=== PATIENT | female | born 1945 | race Caucasian/White ===

== ENCOUNTER 2016-07-08 13:29 | Inpatient (IN) | payer MEDICARE ==
--- NOTE | 2016-07-08 14:56 | ED ---
General Adult HPI <Armando Younger - Last Filed: 07/08/16 16:48> - General Source: patient, RN notes reviewed Mode of arrival: ambulatory Limitations: no limitations <Shyla Grant - Last Filed: 07/08/16 23:09> - General Chief complaint: Extremity Problem,Nontraumatic Stated complaint: DR Matthews Time Seen by Provider: 07/08/16 14:28 - History of Present Illness Initial comments: This is a 70-year-old female who presents with right lower extremity swelling, pain and an increasing wound 2 weeks. Patient states she fell 2 weeks ago and noticed some pain to the right lower extremity that has been increasing over the last week. Patient states she was evaluated after her fall and had x-rays done of the right lower extremity which were negative for any fracture. Patient states she was put on clindamycin to prevent infection. Patient states she went to her primary care physician this morning for evaluation and was sent here to rule out DVT and to be assessed for possible admission for IV antibiotics. Patient is a known diabetic and is on Xarelto for A. fib. Patient denies any numbness/tingling or weakness but states it has been painful to walk on the right lower extremity. Patient has noticed some blistering to the right lower extremity and has a wound to the right knee that has been draining. Patient states a culture was done of this drainage from the wound by her primary care physician. Patient denies any increasing shortness of breath. Patient denies any recent fever, chills, shortness breath, chest pain, abdominal pain, nausea/vomiting/diarrhea, back pain, numbness, tingling, hematuria, headache, or visual changes, or any other complaints. (Shyla Grant) - Related Data Home Medications Medication Instructions Recorded Confirmed Acetaminophen Tab [Tylenol Tab] 500 mg PO Q6H PRN 07/08/16 07/08/16 Albuterol Sulfate [Proair Hfa] 1 - 2 puff INHALATION RT-Q6H PRN 07/08/16 Amitriptyline HCl [Elavil] 12.5 mg PO HS 07/08/16 07/08/16 Ammonium Lactate Cream [Lac-Hydrin 1 applic TOPICAL BID 07/08/16 07/08/16 12% Cream] Aspirin 81 mg PO DAILY 07/08/16 07/08/16 Atorvastatin [Lipitor] 20 mg PO DAILY 07/08/16 07/08/16 Budesonide/Formoterol Fumarate 2 puff INHALATION RT-BID 07/08/16 07/08/16 [Symbicort 160-4.5 Mcg Inhaler] Clindamycin Gel [Clindamycin 1 applic TOPICAL BID 07/08/16 07/08/16 Phosphate] Clobetasol Propionate [Temovate] 1 applic TOPICAL BID 07/08/16 07/08/16 Dulaglutide [Trulicity] 1.5 mg SQ TH 07/08/16 07/08/16 Ergocalciferol [Vitamin D2] 50,000 unit PO TU 07/08/16 07/08/16 Hydrochlorothiazide [Hydrodiuril] 25 mg PO DAILY 07/08/16 07/08/16 INSULIN LISPRO (For Pump) [humaLOG See Protocol SQ-PUMP CONTINUOUS 07/08/1610/19 (For Pump)] Losartan Potassium [Cozaar] 50 mg PO DAILY 07/08/16 07/08/16 Multivit-Min/FA/Lycopene/Lut 0.5 tab PO Q48H 07/08/16 07/08/16 [Centrum Silver Tablet] [place]-3 Fatty Acids [[place]-3] 1,000 mg PO DIRECTED 07/08/16 07/08/16 Rivaroxaban [Xarelto] 20 mg PO DAILY 07/08/16 07/08/16 metFORMIN HCL ER [Glucophage Xr] 500 mg PO DAILY 07/08/16 07/08/16 traMADol HCL [Ultram] 50 mg PO TID PRN 07/08/16 07/08/16 Allergies Allergy/AdvReac Type Severity Reaction Status Date / Time acetaminophen [From Lortab] Allergy Rash/Hives Verified 07/08/16 15:45 hydrocodone [From Lortab] Allergy Rash/Hives Verified 07/08/16 15:45 Sulfa (Sulfonamide Allergy Rash/Hives Verified 07/08/16 15:45 Antibiotics) Review of Systems ROS Other: All systems not noted in ROS Statement are negative. <Armando Younger - Last Filed: 07/08/16 16:48> ROS Other: All systems not noted in ROS Statement are negative. <Shyla Grant - Last Filed: 07/08/16 23:09> ROS Statement: Those systems with pertinent positive or pertinent negative responses have been documented in the HPI. Past Medical History Past Medical History: Asthma, Diabetes Mellitus, Hyperlipidemia, Hypertension, Osteoarthritis (OA) Additional Past Medical History / Comment(s): obesity History of Any Multi-Drug Resistant Organisms: None Reported Past Surgical History: Back Surgery, Cholecystectomy, Hysterectomy, Joint Replacement, Orthopedic Surgery Additional Past Surgical History / Comment(s): r shoulder l knee and r hip Past Psychological History: No Psychological Hx Reported Smoking Status: Former smoker Past Alcohol Use History: None Reported Past Drug Use History: None Reported - Past Family History Father Family Medical History: Congestive Heart Failure (CHF), COPD, Myocardial Infarction (MD) Additional Family Medical History / Comment(s): emphysema Mother Family Medical History: Rheumatoid Arthritis (RA) <Shyla Grant - Last Filed: 07/08/16 23:09> General Exam <Armando Younger - Last Filed: 07/08/16 16:48> Limitations: no limitations <Shyla Grant - Last Filed: 07/08/16 23:09> - General Exam Comments Initial Comments: General: The patient is awake and alert, in no distress, and does not appear acutely ill. Neck: The neck is supple, there is no tenderness or JVD. Cardiovascular: There is a regular rate and rhythm. No murmur, rub or gallop is appreciated. Respiratory: Lungs are clear to auscultation, respirations are non-labored, breath sounds are equal. No wheezes, stridor, rales, or rhonchi. Musculoskeletal: There is tenderness to palpation on the right calf, right knee and right wilson. There is a scab to the anterior aspect of the right knee with surrounding erythema and swelling. This area blanches. There is desquamation of the skin of the right lower extremity with erythema of the right calf and 2+ pitting edema. Left lower extremity is within normal limits. Strength 5/5, full range of motion and Sensation intact. Posterior tibial and dorsalis pedis pulses are 2+ bilaterally. Capillary refill is normal at less than 2 seconds. Neurological: A&O x 3. CN II-XII intact, There are no obvious motor or sensory deficits. Coordination appears grossly intact. Speech is normal. Skin: There is a scab to the anterior aspect of the right knee with surrounding erythema, swelling, warmth and tenderness. The erythema extends to the right ankle. There is a small amount of serosanguineous drainage from the scab of the right knee. There is some erythema to the right calf with desquamation of the skin and blistering. Skin is warm and dry. Psychiatric: Normal mood and affect. (Shyla Grant) Course <Armando Younger - Last Filed: 07/08/16 16:48> <Shyla Grant - Last Filed: 07/08/16 23:09> Vital Signs 07/08/16 07/08/16 07/08/16 13:37 16:45 17:56 Temperature 98.3 F 97.0 F L Pulse Rate 105 H 88 86 Respiratory 18 18 18 Rate Blood Pressure 147/87 143/63 148/67 O2 Sat by Pulse 95 97 95 Oximetry - Reevaluation(s) Reevaluation #1: 07/08/16 16:48 I did personally do a [id number] evaluation the patient is had some discomfort in her right lower extremity since a fall 2 weeks ago. She did have evaluation treatment by her family practice doctor. She's had increased pain and some redness to the right lower extremity ultrasound was done today and was negative for DVT. The exam however is consistent with cellulitis or is increased localized erythema and increased temperature the ankle proximal to the knee. Patient will be admitted for IV antibiotics. (Armando Younger) Medical Decision Making - Lab Data Result diagrams: 07/08/16 16:00 07/08/16 16:00 <Armando Younger - Last Filed: 07/08/16 16:48> - Lab Data Result diagrams: 07/08/16 16:00 07/08/16 16:00 <Shyla Grant - Last Filed: 07/08/16 23:09> - Medical Decision Making This is a 70-year-old female with right lower extremity swelling, erythema, tenderness and warmth 2 weeks after a fall. On physical exam patient is afebrile in the EC. There is tenderness to palpation on the right calf, right knee and right wilson. There is a scab to the anterior aspect of the right knee with surrounding erythema and swelling. The erythema extends to the right ankle. This area blanches. There is desquamation of the skin of the right lower extremity with erythema of the right calf and 2+ pitting edema. Left lower extremity is within normal limits. Strength 5/5, full range of motion and Sensation intact. Posterior tibial and dorsalis pedis pulses are 2+ bilaterally. Capillary refill is normal at less than 2 seconds. There is a scab to the anterior aspect of the right knee with surrounding erythema, swelling, warmth and tenderness. There is a small amount of serosanguineous drainage from the scab of the right knee. There is some erythema to the right calf with desquamation of the skin and blistering. Skin is warm and dry. A wound culture was done on 07/01/2016 and resulted in Streptococcus agalactiae and showed susceptibility to vancomycin. An ultrasound of the right lower extremity was done and reviewed showing: No evidence of acute DVT as visualized. Reported by Dr. Canela. Basic labs were drawn. Patient will be started on vancomycin. Discussed this case with attending physician Dr. Younger in regards to patient admission. I talked with Kuldip Pace TEACHING ARTIST on the phone and she agrees with patient admission and IV antibiotics. At this time patient will be admitted as an inpatient to Dr. Vee. (Shyla Grant) - Lab Data Lab Results 07/08/16 07/08/16 07/08/16 Range/Units 16:00 16:00 16:00 WBC 10.6 (3.8-10.6) k/uL RBC 4.24 (3.80-5.40) m/uL Hgb 11.5 (11.4-16.0) gm/dL Hct 35.6 (34.0-46.0) % MCV 84.0 (80.0-100.0) fL MCH 27.1 (25.0-35.0) pg MCHC 32.3 (31.0-37.0) g/dL RDW 14.0 (11.5-15.5) % Plt Count 252 (150-450) k/uL Neutrophils % 71 % Lymphocytes % 19 % Monocytes % 4 % Eosinophils % 3 % Basophils % 1 % Neutrophils # 7.5 (1.3-7.7) k/uL Lymphocytes # 2.0 (1.0-4.8) k/uL Monocytes # 0.5 (0-1.0) k/uL Eosinophils # 0.4 (0-0.7) k/uL Basophils # 0.1 (0-0.2) k/uL PT (9.0-12.0) sec INR (<1.1) APTT (22.0-30.0) sec Sodium 137 (137-145) mmol/L Potassium 4.4 (3.5-5.1) mmol/L Chloride 95 L (98-107) mmol/L Carbon Dioxide 29 (22-30) mmol/L Anion Gap 13 mmol/L BUN 14 (7-17) mg/dL Creatinine 0.55 (0.52-1.04) mg/dL Est GFR (MDRD) Af Amer >60 (>60 ml/min/1.73 sqM) Est GFR (MDRD) Non-Af >60 (>60 ml/min/1.73 sqM) Glucose 155 H (74-99) mg/dL Estimated Ave Glu mg/dL mg/dL Hemoglobin A1c (4.2-6.1) % Plasma Lactic Acid Cain 2.4 H* (0.7-2.0) mmol/L Calcium 10.4 H (8.4-10.2) mg/dL Total Bilirubin 2.2 H (0.2-1.3) mg/dL AST 28 (14-36) U/L ALT 26 (9-52) U/L Alkaline Phosphatase 119 (38-126) U/L Total Protein 7.0 (6.3-8.2) g/dL Albumin 4.2 (3.5-5.0) g/dL 07/08/16 07/08/16 Range/Units 16:00 16:00 WBC (3.8-10.6) k/uL RBC (3.80-5.40) m/uL Hgb (11.4-16.0) gm/dL Hct (34.0-46.0) % MCV (80.0-100.0) fL MCH (25.0-35.0) pg MCHC (31.0-37.0) g/dL RDW (11.5-15.5) % Plt Count (150-450) k/uL Neutrophils % % Lymphocytes % % Monocytes % % Eosinophils % % Basophils % % Neutrophils # (1.3-7.7) k/uL Lymphocytes # (1.0-4.8) k/uL Monocytes # (0-1.0) k/uL Eosinophils # (0-0.7) k/uL Basophils # (0-0.2) k/uL PT 10.6 (9.0-12.0) sec INR 1.0 (<1.1) APTT 27.0 (22.0-30.0) sec Sodium (137-145) mmol/L Potassium (3.5-5.1) mmol/L Chloride (98-107) mmol/L Carbon Dioxide (22-30) mmol/L Anion Gap mmol/L BUN (7-17) mg/dL Creatinine (0.52-1.04) mg/dL Est GFR (MDRD) Af Amer (>60 ml/min/1.73 sqM) Est GFR (MDRD) Non-Af (>60 ml/min/1.73 sqM) Glucose (74-99) mg/dL Estimated Ave Glu mg/dL 214 mg/dL Hemoglobin A1c 9.1 H (4.2-6.1) % Plasma Lactic Acid Cain (0.7-2.0) mmol/L Calcium (8.4-10.2) mg/dL Total Bilirubin (0.2-1.3) mg/dL AST (14-36) U/L ALT (9-52) U/L Alkaline Phosphatase (38-126) U/L Total Protein (6.3-8.2) g/dL Albumin (3.5-5.0) g/dL Disposition <Armando Younger - Last Filed: 07/08/16 16:48> Decision Time: 17:29 <Shyla Grant - Last Filed: 07/08/16 23:09> Clinical Impression: Cellulitis Disposition: ADMITTED IP TO THIS [facility] Condition: Good
[2016-07-08] MEDS ORDERED: IV VANCOMYCIN PER PHARMACY 1 EACH MISC MISCELLANE PRN (15:05)
[2016-07-08] MEDS ORDERED: VANCOMYCIN 1,750 MG in SODIUM CHLORIDE 0.9% 250 ML IVPB STA (15:11)
--- NOTE | 2016-07-08 15:49 | US ---
EXAMINATION TYPE: US venous doppler duplex LE RT DATE OF EXAM: 07/08/2016 3:32 PM COMPARISON: NONE CLINICAL HISTORY: Pain. Patient had a fall 2 weeks ago, pain right leg, right knee replacement 2002, patient on Xarelto, AFIB SIDE PERFORMED: Right VESSELS IMAGED: External Iliac Vein (EIV) Common Femoral Vein Deep Femoral Vein Greater Saphenous Vein * Femoral Vein Popliteal Vein Small Saphenous Vein * Proximal Calf Veins (* superficial vessels) No intraluminal filling defect. Normal compressibility and augmentation of flow. Right Leg: No evidence of acute DVT as visualized IMPRESSION: No evidence for DVT at this time.
[2016-07-08] MEDS ORDERED: SODIUM CHLORIDE 0.9% 500 ML IV ONE (16:28)
[2016-07-08 16:29] LABS: Basophils # (A) 0.1 k/uL (0-0.2); Basophils % (A) 1 %; CH 27.8; CHCM 33.2; Eosinophils # (A) 0.4 k/uL (0-0.7); Eosinophils % (A) 3 %; HCT 35.6 % (34.0-46.0); HDW 3.02; HGB 11.5 gm/dL (11.4-16.0); Luc # (Auto) 0.18; Luc % (Auto) 2; Lymphocytes % (A) 19 %; MCH 27.1 pg (25.0-35.0); MCHC 32.3 g/dL (31.0-37.0); Monocytes # (A) 0.5 k/uL (0-1.0); Monocytes % (A) 4 %; Neutrophils # (A) 7.5 k/uL (1.3-7.7); Neutrophils % (A) 71 %; RBC 4.24 m/uL (3.80-5.40); WBC 10.6 k/uL (3.8-10.6)
[2016-07-08 16:33] LABS: ALT 26 U/L (9-52); AST 28 U/L (14-36); Alkaline Phosphatase 119 U/L (38-126); Anion Gap 13 mmol/L; Blood Urea Nitrogen 14 mg/dL (7-17); Calcium 10.4 mg/dL (8.4-10.2); Carbon Dioxide 29 mmol/L (22-30); Chloride 95 mmol/L (98-107); Glucose 155 mg/dL (74-99); Non-African American GFR(MDRD) >60 (>60 ml/min/1.73 sqM); Potassium 4.4 mmol/L (3.5-5.1); Sodium 137 mmol/L (137-145); Total Bilirubin 2.2 mg/dL (0.2-1.3)
[2016-07-08 16:40] LABS: Prothrombin Time 10.6 sec (9.0-12.0)
[2016-07-08] MEDS ORDERED: NALOXONE 0.4 MG/ML 1 ML VIAL IV PRN (17:00)
[2016-07-08] MEDS ORDERED: NON-FORMULARY DRUG (Omega-3 Fatty Acids [Omega-3] 1,000 MG) PO SCH (17:15)
[2016-07-08] MEDS ORDERED: IPRATROPIUM-ALBUTEROL 3 ML NEB INHALATION PRN (17:16)
[2016-07-08] MEDS ORDERED: INSULIN LISPRO (humaLOG) 300 UNIT/3 ML VIAL SQ ONE (17:17)
[2016-07-08] MEDS: SYMBICORT 160-4.5 MCG INHALER INHALATION SCH (19:10)
[2016-07-08 19:13] LABS: Hemoglobin A1C 9.1 % (4.2-6.1)
[2016-07-08] MEDS: INSULIN LISPRO (humaLOG) 300 UNIT/3 ML VIAL SQ SCH ×2 (19:51→20:48)
[2016-07-08] MEDS: IBUPROFEN 400 MG TAB PO PRN (19:56)
[2016-07-08] MEDS: RIVAROXABAN 10 MG TAB PO SCH (19:57)
[2016-07-08] MEDS: AMITRIPTYLINE HCL 25 MG TAB PO SCH (19:57)
[2016-07-08] MEDS: CLOBETASOL PROP 0.05% CR 15GM TOPICAL SCH (19:58)
[2016-07-08] MEDS: SODIUM CHLORIDE 0.9% 1,000 ML IV SCH (20:03)
[2016-07-08 20:42] LABS: Glucose,Whole Blood 97 mg/dL (75-99)
[2016-07-08] MEDS: AMMONIUM LACTATE 12% CREAM 140 GM TUBE TOPICAL SCH (20:48)
[2016-07-08] MEDS ORDERED: NON-FORMULARY DRUG (Clindamycin Gel 1 APPLIC) TOPICAL SCH (21:00)
[2016-07-09] MEDS: IBUPROFEN 400 MG TAB PO PRN ×4 (03:09→23:39)
[2016-07-09] MEDS: VANCOMYCIN 1,750 MG in SODIUM CHLORIDE 0.9% 250 ML IVPB SCH ×2 (05:31→17:26)
[2016-07-09 05:50] LABS: Basophils # (A) 0.1 k/uL (0-0.2); Basophils % (A) 1 %; CH 27.4; CHCM 32.5; Eosinophils # (A) 0.4 k/uL (0-0.7); Eosinophils % (A) 5 %; HCT 32.5 % (34.0-46.0); HDW 3.03; HGB 10.4 gm/dL (11.4-16.0); Hypochromasia Slight; Luc # (Auto) 0.16; Luc % (Auto) 2; Lymphocytes % (A) 26 %; MCH 27.2 pg (25.0-35.0); MCHC 32.1 g/dL (31.0-37.0); MCV 84.8 fL (80.0-100.0); Mean Platelet Volume 7.7; Monocytes # (A) 0.4 k/uL (0-1.0); Monocytes % (A) 5 %; Neutrophils # (A) 4.8 k/uL (1.3-7.7); Neutrophils % (A) 61 %; RBC 3.83 m/uL (3.80-5.40); RDW 14.2 % (11.5-15.5); WBC 7.9 k/uL (3.8-10.6); WBC (Perox) 8.32
[2016-07-09 06:09] LABS: ALT 30 U/L (9-52); AST 23 U/L (14-36); Alkaline Phosphatase 104 U/L (38-126); Anion Gap 10 mmol/L; Blood Urea Nitrogen 15 mg/dL (7-17); Calcium 9.8 mg/dL (8.4-10.2); Carbon Dioxide 28 mmol/L (22-30); Chloride 99 mmol/L (98-107); Glucose 143 mg/dL (74-99); Non-African American GFR(MDRD) >60 (>60 ml/min/1.73 sqM); Potassium 4.2 mmol/L (3.5-5.1); Sodium 137 mmol/L (137-145); Total Bilirubin 1.9 mg/dL (0.2-1.3)
[2016-07-09] MEDS: SYMBICORT 160-4.5 MCG INHALER INHALATION SCH ×2 (07:28→19:31)
[2016-07-09 07:43] LABS: Glucose,Whole Blood 162 mg/dL (75-99)
[2016-07-09] MEDS: INSULIN LISPRO (humaLOG) 300 UNIT/3 ML VIAL SQ SCH ×4 (08:17→21:27)
[2016-07-09] MEDS: metFORMIN 500 MG TAB PO SCH ×2 (08:18→17:28)
[2016-07-09] MEDS: ATORVASTATIN 20 MG TAB PO SCH (08:18)
[2016-07-09] MEDS: ASPIRIN 81 MG CHEW PO SCH (08:19)
[2016-07-09] MEDS: LOSARTAN 50 MG TAB PO SCH (08:19)
[2016-07-09] MEDS: AMMONIUM LACTATE 12% CREAM 140 GM TUBE TOPICAL SCH ×2 (08:20→21:26)
[2016-07-09] MEDS: CLOBETASOL PROP 0.05% CR 15GM TOPICAL SCH ×2 (08:20→21:26)
[2016-07-09] MEDS ORDERED: HYDROCHLOROTHIAZIDE 25 MG TAB PO SCH (09:00)
[2016-07-09 11:47] LABS: Glucose,Whole Blood 187 mg/dL (75-99)
[2016-07-09] MEDS ORDERED: ERGOCALCIFEROL 50,000 UNIT CAP PO SCH (12:00)
[2016-07-09 12:10] VITALS: BMI 47.2
[2016-07-09] MEDS: MULTIVITAMINS, THERA LIQUID 237 ML BOTTLE PO SCH (12:35)
--- NOTE | 2016-07-09 13:10 | HP ---
DATE OF ADMISSION: Patient is a 70-year-old admitted with left lower extremity swelling, pain and redness with localized of temperature. Patient's leg appear to be cellulitic extending up to the midthigh area. Patient has skin breakdowns in the left knee where she had a left knee surgery, and symptoms started with a bullous lesion. I did not did not see any right inguinal lymphadenopathy. Patient underwent Doppler of the right lower extremity, which did not show any DVT. Patient is on Xarelto for atrial fibrillation and patient apparently had a DVT as well in the past. Patient was started on vancomycin and I am consulting because of the severity of redness and severity of her symptoms, I will go consult Infectious Disease. Patient was given outpatient clindamycin, she failed therapy with clindamycin. Patient denied any fever, chills. Patient is complaining of severe pain and burning sensation in the right lower extremity. REVIEW OF SYSTEMS: CONSTITUTIONAL: No fever, no malaise, no fatigue. HEENT: No recent visual problems or hearing problems. Denied any sore throat. CARDIOVASCULAR: No chest pain, orthopnea, PND, no palpitations, no syncope. PULMONARY: No shortness of breath, no cough, no hemoptysis. GASTROINTESTINAL: No diarrhea, no nausea, no vomiting, no abdominal pain. Normoactive bowel sounds. NEUROLOGICAL: No headaches, no weakness, no numbness. HEMATOLOGICAL: Denies any bleeding or petechiae. GENITOURINARY: Denies any burning micturition, frequency, or urgency. MUSCULOSKELETAL/RHEUMATOLOGICAL: Denies any joint pain, swelling, or any muscle pain. ENDOCRINE: Denies any polyuria or polydipsia. EXTREMITIES: Right lower extremity as mentioned above. The rest of the 14 point review of systems is negative. Home medications include: 1. Acetaminophen. 2. Albuterol. 3. Amitriptyline. 4. Ammonium lactate aspirin. 5. Atorvastatin. 6. Budesonide/formoterol. 7. Clindamycin. 8. Clobetasol. 9. Trulicity. 10. Ergocalciferol. 11. Hydrochlorothiazide. 12. Insulin lispro. Patient uses pump in spite of which he has had ( ) that is 9.1. So she does not use the pump, but will try her pump and see what is wrong with the pump and depending on that, will decide on what regimen to use of the two, use the pump or for just put her on Lantus and premeal insulin. 13. Losartan. 14. Multivitamin. 15. [place]-3 fatty acids. 16. Rivaroxaban. 17. Metformin. 18. Tramadol. ALLERGIES: Allergic to ACETAMINOPHEN, HYDROCODONE and SULFA DRUGS. PAST MEDICAL HISTORY: Significant for asthma, diabetes mellitus, hyperlipidemia, hypertension, osteoarthritis, back surgery, cholecystectomy, hysterectomy, joint replacement surgery and orthopedic surgery, shoulder replacement surgery. Former smoker. Quit smoking years ago. Denied any alcohol abuse or drug abuse. FAMILY HISTORY: Significant for congestive heart failure, COPD, myocardial infarction in the past, rheumatoid arthritis. PHYSICAL EXAMINATION: Temperature 97.0, pulse of 80, respiratory rate of 21, blood pressure is 150/81, saturating at 94% on room air. GENERAL: The patient is alert and oriented x3, not in any acute distress. Well developed, well nourished. HEENT: Pupils are round and equally reacting to light. EOMI. No scleral icterus. No conjunctival pallor. Normocephalic, atraumatic. No pharyngeal erythema. No thyromegaly. CARDIOVASCULAR: S1 and S2 present. No murmurs, rubs, or gallops. PULMONARY: Chest is clear to auscultation, no wheezing or crackles. ABDOMEN: Soft, nontender, nondistended, normoactive bowel sounds. No palpable organomegaly. MUSCULOSKELETAL: No joint swelling or deformity. NEUROLOGICAL: Gross neurological examination did not reveal any focal deficits. EXTREMITIES: Right lower extremity and dermatologic as mentioned in the HPI. Patient was tachycardic at one point of time in ER. LABORATORY DATA: CBC, CMP within normal limits. Hemoglobin A1c as mentioned above. Patient has elevated bilirubin which is a nonspecific elevation, nothing needs to be done for that. ASSESSMENT AND PLAN: 1. Right lower extremity cellulitis. Patient had a recent surgery. Negative Doppler for DVT. Patient will be continued on vancomycin, blood cultures were obtained. 2. Diabetes mellitus type 2, management as mentioned above. 3. Hypertension. 4. Hyperlipidemia. 5. Osteoarthritis. 6. Obesity. For above mentioned chronic medical problems, I will go ahead and continue the home medications and patient's primary care physician is Dr. Marshall Sy.
[2016-07-09 17:11] LABS: Glucose,Whole Blood 180 mg/dL (75-99)
[2016-07-09] MEDS: RIVAROXABAN 10 MG TAB PO SCH (17:27)
[2016-07-09] MEDS: SODIUM CHLORIDE 0.9% 1,000 ML IV SCH (17:39)
[2016-07-09 20:24] LABS: Glucose,Whole Blood 206 mg/dL (75-99)
[2016-07-09] MEDS: AMITRIPTYLINE HCL 25 MG TAB PO SCH (21:25)
[2016-07-09] MEDS: FAMOTIDINE 20 MG TAB PO SCH (21:26)
[2016-07-10] MEDS ORDERED: VANCOMYCIN TROUGH DUE 1 EACH MISC MISCELLANE ONE (05:00)
[2016-07-10] MEDS: IBUPROFEN 400 MG TAB PO PRN ×3 (05:20→18:45)
[2016-07-10 05:44] LABS: CH 27.2; CHCM 32.1; HCT 32.3 % (34.0-46.0); HDW 3.06; HGB 10.4 gm/dL (11.4-16.0); Hypochromasia Slight; MCH 27.5 pg (25.0-35.0); MCHC 32.3 g/dL (31.0-37.0); MCV 85.1 fL (80.0-100.0); Mean Platelet Volume 7.8; RBC 3.79 m/uL (3.80-5.40); RDW 14.1 % (11.5-15.5); WBC 7.9 k/uL (3.8-10.6)
[2016-07-10 06:05] LABS: Anion Gap 10 mmol/L; Blood Urea Nitrogen 15 mg/dL (7-17); Calcium 9.6 mg/dL (8.4-10.2); Carbon Dioxide 27 mmol/L (22-30); Chloride 101 mmol/L (98-107); Glucose 221 mg/dL (74-99); Non-African American GFR(MDRD) >60 (>60 ml/min/1.73 sqM); Potassium 4.4 mmol/L (3.5-5.1); Sodium 138 mmol/L (137-145)
[2016-07-10] MEDS: VANCOMYCIN 1,750 MG in SODIUM CHLORIDE 0.9% 250 ML IVPB SCH ×2 (06:21→17:09)
[2016-07-10 06:57] LABS: Glucose,Whole Blood 212 mg/dL (75-99)
[2016-07-10] MEDS: ASPIRIN 81 MG CHEW PO SCH (07:29)
[2016-07-10] MEDS: AMMONIUM LACTATE 12% CREAM 140 GM TUBE TOPICAL SCH ×2 (07:29→20:38)
[2016-07-10] MEDS: metFORMIN 500 MG TAB PO SCH ×2 (07:29→17:09)
[2016-07-10] MEDS: ATORVASTATIN 20 MG TAB PO SCH (07:29)
[2016-07-10] MEDS: FAMOTIDINE 20 MG TAB PO SCH ×2 (07:30→20:35)
[2016-07-10] MEDS: CLOBETASOL PROP 0.05% CR 15GM TOPICAL SCH ×2 (07:30→23:08)
[2016-07-10] MEDS: LOSARTAN 50 MG TAB PO SCH (07:30)
[2016-07-10] MEDS: INSULIN LISPRO (humaLOG) 300 UNIT/3 ML VIAL SQ SCH ×4 (07:30→22:17)
[2016-07-10] MEDS: SYMBICORT 160-4.5 MCG INHALER INHALATION SCH ×2 (09:04→21:05)
[2016-07-10 11:46] LABS: Glucose,Whole Blood 179 mg/dL (75-99)
[2016-07-10 16:52] LABS: Glucose,Whole Blood 199 mg/dL (75-99)
[2016-07-10] MEDS: RIVAROXABAN 10 MG TAB PO SCH (17:09)
[2016-07-10] MEDS: SODIUM CHLORIDE 0.9% 1,000 ML IV SCH (17:09)
[2016-07-10] MEDS: AMITRIPTYLINE HCL 25 MG TAB PO SCH (20:35)
[2016-07-10 21:01] LABS: Glucose,Whole Blood 193 mg/dL (75-99)
[2016-07-10] MEDS: traMADol 50 MG TAB PO PRN (22:16)
[2016-07-11] MEDS: VANCOMYCIN 1,750 MG in SODIUM CHLORIDE 0.9% 250 ML IVPB SCH (05:19)
[2016-07-11 07:00] LABS: Glucose,Whole Blood 209 mg/dL (75-99)
[2016-07-11] MEDS: metFORMIN 500 MG TAB PO SCH ×2 (08:11→17:47)
[2016-07-11] MEDS: FAMOTIDINE 20 MG TAB PO SCH (08:11)
[2016-07-11] MEDS: ATORVASTATIN 20 MG TAB PO SCH (08:11)
[2016-07-11] MEDS: ASPIRIN 81 MG CHEW PO SCH (08:12)
[2016-07-11] MEDS: INSULIN LISPRO (humaLOG) 300 UNIT/3 ML VIAL SQ SCH ×4 (08:13→21:39)
[2016-07-11] MEDS: LOSARTAN 50 MG TAB PO SCH (08:13)
[2016-07-11] MEDS: CLOBETASOL PROP 0.05% CR 15GM TOPICAL SCH ×2 (08:14→21:38)
[2016-07-11] MEDS: AMMONIUM LACTATE 12% CREAM 140 GM TUBE TOPICAL SCH ×2 (08:14→21:40)
[2016-07-11 08:22] LABS: Anion Gap 12 mmol/L; Calcium 9.1 mg/dL (8.4-10.2); Carbon Dioxide 26 mmol/L (22-30); Chloride 101 mmol/L (98-107); Glucose 195 mg/dL (74-99); Non-African American GFR(MDRD) >60 (>60 ml/min/1.73 sqM); Potassium 4.2 mmol/L (3.5-5.1); Sodium 139 mmol/L (137-145)
[2016-07-11 08:37] LABS: Blood Urea Nitrogen 13 mg/dL (7-17)
[2016-07-11] MEDS: SYMBICORT 160-4.5 MCG INHALER INHALATION SCH ×2 (08:44→21:18)
[2016-07-11] MEDS: traMADol 50 MG TAB PO PRN (10:47)
--- NOTE | 2016-07-11 11:56 | P.PN ---
Subjective Date of service 07/10/2016 Progress note being dictated for Dr. Vee. Interval history: This is a 70-year-old female admitted with right lower extremity cellulitis, significant scabbed knee, status post fall with failure of outpatient treatment and multiple other medical issues. Doppler negative for DVT. Patient has insulin pump, pump issues, hemoglobin A1c on admission 9.1. natural resources extension educator consult in place with further recommendations pending. Accu-Cheks ranging from 170s to low 200s. Maintained on vancomycin with slow improvement. Decreased pain . Diet intake with no nausea or vomiting. Positive bowel movement last night . Infectious disease consulted further recommendations. Denies chest pain, palpitations or increasing shortness of breath. Afebrile, normal WBC. Pulmonary blood culture negative. Objective - Vital Signs Vital signs: Vital Signs Temp 98.1 F 07/10/16 15:00 Pulse 88 07/10/16 15:00 Resp 20 07/10/16 15:00 BP 140/76 07/10/16 15:00 Pulse Ox 97 07/10/16 15:00 Intake & Output 07/09/16 07/10/16 07/10/16 18:59 06:59 18:59 Intake Total 1520 Balance 1520 Weight 113.398 kg Intake: Oral 1520 Other: Voiding Method Bedside Commode Bedside Commode # Voids 3 3 3 - Exam PHYSICAL EXAM: VITAL SIGNS: [As above] GENERAL: [Sitting up at side of bed, no acute distress] HEENT: [Pupils equal conjunctiva normal.] NECK: [Supple, no JVD] RESPIRATORY EFFORT:[Normal] LUNGS: [Essentially clear, bilateral bases diminished, no rales rhonchi or wheezing] CARDIOVASCULAR[irregular, no murmurs rubs or gallops] GI: [Abdomen soft, nontender, positive bowel sounds.] PSYCH: [Alert and oriented -3, mood and affect normal.] SKIN:Improved erythema, edema of right lower extremity. Scab dry without drainage. NEURO: No focal deficits, moves all 4 extremities, strength and sensation intact - Labs CBC & Chem 7: 07/10/16 05:18 07/11/16 07:42 Labs: Abnormal Lab Results - Last 24 Hours (Table) 07/09/16 07/10/16 07/10/16 Range/Units 20:14 05:18 05:18 RBC 3.79 L (3.80-5.40) m/uL Hgb 10.4 L (11.4-16.0) gm/dL Hct 32.3 L (34.0-46.0) % Glucose 221 H (74-99) mg/dL POC Glucose (mg/dL) 206 H (75-99) mg/dL 07/10/16 07/10/16 07/10/16 Range/Units 06:56 11:45 16:50 RBC (3.80-5.40) m/uL Hgb (11.4-16.0) gm/dL Hct (34.0-46.0) % Glucose (74-99) mg/dL POC Glucose (mg/dL) 212 H 179 H 199 H (75-99) mg/dL Assessment and Plan Plan: 1. Right lower extremity cellulitis with wound scabbed over, status post fall with failure of outpatient treatment. 2. [Diabetes mellitus type 2, with insulin pump difficulties, hemoglobin A1c 9.1 ]. 3. [Essential hypertension]. 4. [Hyperlipidemia]. 5. [Osteoarthritis]. 6. [Obesity, BMI 47.2]. 7. Gait dysfunction, uses walker 8. Former history of nicotine abuse 9. Chronic intermittent asthma Plan: Continue on current medication regime, antibiotics, monitoring and symptomatic treatment. Close monitoring of Accu-Cheks with informatics educator consult in place regarding insulin pump difficulties. Slow improvement of extremity with infectious disease consulted. Close monitoring of cultures. Further recommendations to follow. The impression and plan of care has been dictated as directed. : I performed a H&P examination of this patient and discussed the same with the dictator. I agree with the dictator's note. Any additional findings/opinions/ etc. will be noted.
[2016-07-11 12:01] LABS: Glucose,Whole Blood 219 mg/dL (75-99)
[2016-07-11] MEDS ORDERED: FUROSEMIDE 10 MG/ML 4 ML VIAL IV STA (12:16)
[2016-07-11] MEDS: MULTIVITAMINS, THERA LIQUID 237 ML BOTTLE PO SCH (12:58)
--- NOTE | 2016-07-11 16:33 | PN ---
The patient is a 70 -year-old female admitted with a right lower extremity cellulitis and patient still has quite a bit of cellulitis in that area and patient is awaiting and recommendations from infectious disease. I will give her a dose of Lasix because of her increased edema. Patient is asked to elevate her leg. Her kidney function is within normal limits. REVIEW OF SYSTEMS: CARDIOVASCULAR: No chest pain, no orthopnea, no PND, no palpitations. PULMONARY: Denied any shortness of breath. No cough or hemoptysis. GASTROINTESTINAL: No diarrhea, nausea or vomiting. No abdominal pain. Normoactive bowel sounds. NEUROLOGIC: No headaches, no weakness, no numbness. Dermatologic as described in HPI. Medications were reviewed. Medication changes as mentioned in the interval history. PHYSICAL EXAMINATION: Temperature 97.5, Pulse of 87, respiratory rate 20, blood pressure 145/77, saturating at 95% on room air. GENERAL: The patient is alert and oriented x3, not in any acute distress. Well developed, well nourished. HEENT: Pupils are round and equally reacting to light. EOMI. No scleral icterus. No conjunctival pallor. Normocephalic, atraumatic. No pharyngeal erythema. No thyromegaly. CARDIOVASCULAR: S1 and S2 present. No murmurs, rubs, or gallops. PULMONARY: Chest is clear to auscultation, no wheezing or crackles. ABDOMEN: Soft, nontender, nondistended, normoactive bowel sounds. No palpable organomegaly. MUSCULOSKELETAL: No joint swelling or deformity. EXTREMITIES: Edema is worse. Her redness improved a little bit. Patient's wounds remain the same and ruptured bolus lesions remain the same. NEUROLOGICAL: Gross neurological examination did not reveal any focal deficits. SKIN: No rashes. LABORATORY DATA: Basic metabolic profile is essentially within normal limits. ASSESSMENT AND PLAN: 1. Right lower extremity cellulitis. Continue with vancomycin. Patient has right knee surgery. 2. Type 2 diabetes mellitus. 3. Hypertension. 4. Hyperlipidemia. 5. Obesity. 6. Nicotine abuse. 7. Chronic intermittent asthma moderate without any exacerbation. Plan is to continue with present antibiotics, IV fluids will be discontinued and patient will be given a dose of Lasix. Patient's insulin pump will be placed ( ) we will put her insulin pump back on and see how her blood sugars are. Diabetic education will evaluate the Insulin pump. Awaiting the infectious disease recommendations. Possibility of discharge tomorrow.
[2016-07-11 16:44] LABS: Glucose,Whole Blood 231 mg/dL (75-99)
[2016-07-11] MEDS: ceFAZolin 2 GM in SODIUM CHLORIDE 0.9% 100 ML IVPB SCH ×2 (16:52→23:45)
[2016-07-11] MEDS ORDERED: NON-FORMULARY DRUG (Dulaglutide [Trulicity] 1.5 MG) SQ SCH (17:04)
[2016-07-11] MEDS: RIVAROXABAN 10 MG TAB PO SCH (17:47)
[2016-07-11] MEDS: SODIUM CHLORIDE 0.9% 1,000 ML IV SCH (17:49)
[2016-07-11 21:32] LABS: Glucose,Whole Blood 167 mg/dL (75-99)
[2016-07-11] MEDS: AMITRIPTYLINE HCL 25 MG TAB PO SCH (21:39)
--- NOTE | 2016-07-11 22:49 | CONS ---
DATE OF CONSULTATION: 07/11/2016 REASON FOR CONSULTATION: Right lower lobe cellulitis. HISTORY OF PRESENT ILLNESS: The patient is a 60-year-old female presenting to the ER with chief complaints of increasing swelling and redness of her right lower extremity. The patient apparently did have a fall about 2 weeks ago and the patient fell on her right knee area, and that has led to some bruising and laceration all clustered up, subsequently the patient noticed to have the right leg becoming more swollen and red and the patient apparently has been treated with Clindamycin and no significant improvement. Subsequently patient has been sent to the ER to be evaluated for possible DVT. The patient did have a lower extremity Doppler that was negative for DVT. The patient has been admitted to the hospital. She was started on vancomycin. I was asked to see the patient last night for further recommendations antibiotics. The patient has no fever during this admission and she did have normal white count on her admission as well. Blood culture has been negative, wound culture so far negative. Patient did mention that the right leg swelling and redness slight more with some blister formation which has not popped up. REVIEW OF SYSTEMS: CONSTITUTIONAL: Positive for weakness but denies any fever. EYES: No complaint. ENT: No complaint. RESPIRATORY: As per HPI. CARDIOVASCULAR: No complaint. GENITOURINARY: No complaint. GASTROINTESTINAL: No complaint. MUSCULOSKELETAL: As per HPI. INTEGUMENTARY: As per HPI. PSYCHOLOGIC: No complaint. ENDOCRINE: No complaint. NEUROLOGIC: No complaint. Past medical history significant for diabetes mellitus, hypertension, hyperlipidemia, osteoarthritis, asthma, morbid obesity. PAST SURGICAL HISTORY: Cholecystectomy, hysterectomy, right knee replacement in 2002 and back surgery. SOCIAL HISTORY: Remote history of smoking. No drinking or any drug use. FAMILY HISTORY: History of congestive heart failure, COPD and myocardial infarction as well as emphysema. Mother with history of rheumatoid arthritis. ALLERGIES: TYLENOL, HYDROCODONE AND SULFA ANTIBIOTIC. Medications currently include the patient is on: 1. DuoNeb. 2. Elavil. 3. Aspirin. 4. Lipitor. 5. Vancomycin, pharmacy to dose. 6. Vitamin D2. 7. Lasix. 8. Humalog. 9. Theragran. 10. Ammonia lactate. 11. Cozaar. 12. Glucophage. 13. Narcan. 14. Xarelto. 15. Tramadol. On examination, blood pressure 126/60 with a pulse of 86, temperature 98.6. She is 94% on room air. General description is an elderly female, up in the chair in no distress. No tachypnea or accessory muscle of respiration use. HEENT examination shows pallor. There is no scleral icterus. Oral mucosa membranes dry. NECK: Trachea central. There is no thyromegaly. LUNGS: Unlabored breathing. Clear to auscultation anteriorly. HEART: S1, S2 irregular rate and rhythm. ABDOMEN: Soft, no tenderness. No guarding or rigidity. EXTREMITIES: Right leg is slightly more swollen but did have minimal redness, slightly warm to touch. She did have a bruise and a dried up scar on the right knee area. NEUROLOGICAL: Patient is awake, alert, oriented x3. Mood and affect normal. LABS: Hemoglobin is 10.7, white count 7.9. BUN of 13, creatinine 0.59. Blood culture has been currently pending. Lower extremity Doppler was negative for DVT. DIAGNOSTIC IMPRESSION AND PLAN: Patient with diffuse swelling and redness of the right lower extremity. The patient did have a recent fall and did have a bruise to the right knee area current with a bruise to the knee but no definite cellulitis of the area was noticed. with swelling and redness of the leg. No evidence of any athlete's foot. No skin break down or any drainage, more likely streptococcal cellulitis, clinical suspicious low for Methicillin-resistant Staph aureus infection. PLAN: 1. Will discontinue the vancomycin. 2. Start the patient on Cefazolin 2 grams q.8 hour. 3. dry dressing to the knee area to keep it dry. 4. Will follow up on the clinical condition and cultures to further adjust the medication if needed. Thank you for this consultation. Will follow this patient along with you. IVANA
[2016-07-12 07:11] LABS: Glucose,Whole Blood 200 mg/dL (75-99)
[2016-07-12] MEDS: SYMBICORT 160-4.5 MCG INHALER INHALATION SCH (07:27)
[2016-07-12 07:35] VITALS: RESP 18
[2016-07-12] MEDS: metFORMIN 500 MG TAB PO SCH (07:57)
[2016-07-12] MEDS: INSULIN LISPRO (humaLOG) 300 UNIT/3 ML VIAL SQ SCH ×2 (07:57→12:40)
[2016-07-12] MEDS: ceFAZolin 2 GM in SODIUM CHLORIDE 0.9% 100 ML IVPB SCH (07:57)
[2016-07-12] MEDS: ATORVASTATIN 20 MG TAB PO SCH (07:58)
[2016-07-12] MEDS: ASPIRIN 81 MG CHEW PO SCH (07:58)
[2016-07-12] MEDS: AMMONIUM LACTATE 12% CREAM 140 GM TUBE TOPICAL SCH (07:58)
[2016-07-12] MEDS: CLOBETASOL PROP 0.05% CR 15GM TOPICAL SCH (07:58)
[2016-07-12] MEDS: LOSARTAN 50 MG TAB PO SCH (07:59)
[2016-07-12] MEDS: traMADol 50 MG TAB PO PRN (08:42)
[2016-07-12] MEDS ORDERED: FUROSEMIDE 10 MG/ML 4 ML VIAL IV SCH (09:00)
[2016-07-12 09:54] LABS: CH 27.1; CHCM 31.9; HCT 35.4 % (34.0-46.0); HGB 11.1 gm/dL (11.4-16.0); Hypochromasia Slight; MCH 26.8 pg (25.0-35.0); MCHC 31.3 g/dL (31.0-37.0); MCV 85.5 fL (80.0-100.0); Mean Platelet Volume 7.6; RBC 4.14 m/uL (3.80-5.40); RDW 14.1 % (11.5-15.5); WBC 10.5 k/uL (3.8-10.6)
[2016-07-12 10:10] LABS: Anion Gap 15 mmol/L; Blood Urea Nitrogen 12 mg/dL (7-17); Calcium 9.1 mg/dL (8.4-10.2); Carbon Dioxide 24 mmol/L (22-30); Chloride 99 mmol/L (98-107); Glucose 266 mg/dL (74-99); Non-African American GFR(MDRD) >60 (>60 ml/min/1.73 sqM); Sodium 138 mmol/L (137-145)
[2016-07-12 11:46] LABS: Glucose,Whole Blood 251 mg/dL (75-99)
[2016-07-12 14:50] VITALS: BP 153/73; PULSE 81; TEMP 97.9
--- NOTE | 2016-07-12 17:44 | PN ---
DATE OF SERVICE: 07/12/2016 REASON FOR FOLLOWUP: Right lower extremity cellulitis. INTERVAL HISTORY: The patient is afebrile. She is currently breathing comfortably. The patient denies significant chest pain or shortness of breath or cough. The right leg swelling has improved. No skin breakdown. No drainage. On examination, blood pressure is 136/70 with a pulse of 87, temperature 97. She is 93% on room air. General description is an elderly female up in the chair in no distress. RESPIRATORY SYSTEM: Unlabored breathing. Clear to auscultation anteriorly. HEART: S1, S2. Regular rate and rhythm. ABDOMEN: Soft. No tenderness. RIGHT LEG: Overall swelling and redness have improved. The knee is about the same, with no worsening. DIAGNOSTIC IMPRESSION AND PLAN: Patient with right lower extremity cellulitis. Overall improvement on the cefazolin. Plan to finish therapy with p.o. Keflex 500 mg q.8 hours for another 10 days. Prescription has been sent for the pharmacy. She will continue with an Drake wrap to keep the swelling down. Outpatient followup in the office in about a week. Continue supportive care. IVANA
--- NOTE | 2016-07-13 08:04 | DS ---
DATE OF ADMISSION: 07/08/2016 DATE OF DISCHARGE: 07/12/2016 FINAL DIAGNOSES: 1. Right lower extremity cellulitis 2. Diabetes mellitus type 2. 3. Hypertension. 4. Hyperlipidemia. 5. Obesity. 6. History of nicotine dependence. 7. History of chronic intermittent asthma, moderate without any exacerbation. DISCHARGE DISPOSITION: The patient will be discharged in stable condition with guarded prognosis. HISTORY OF PRESENT ILLNESS: This 70-year-old woman with a past medical history of multiple medical problems was admitted with right lower extremity cellulitis and other medical issues. The patient being treated with IV antibiotics. The patient improved significantly. Infectious disease saw the patient and local treatment was advised. The patient will be discharged in a stable condition with guarded prognosis. DISCHARGE ADVICE AND MEDICATIONS: 1. Diet is cardiac. 2. Activity limited until follow 3. Follow-up with Dr. Sy in 2 to 3 days. 4. Follow up with Dr. Hernandez in one week. Infectious disease. 5. Otherwise, medications are Tylenol 500 mg q.6 p.r.n. 6. Pro-Air 1 to 2 puffs q.i.d. p.r.n. 7. Elavil 12.5 mg q.h.s. 8. Lac-Hydrin topically daily. 9. Aspirin 81 mg daily. 10. Lipitor 20 mg daily. 11. Symbicort 2 puffs b.i.d. 12. Keflex 500 mg q.8 for 10 days. 13. Clindamycin application topically. 14. clobetasol one application topically. 15. Trulicity 1.5 mg subcutaneously . 16. Vitamin D2 50,000 p.o. Friday. 17. HydroDIURIL 25 mg p.o. daily. 18. Insulin pump as before. 19. Cozaar 50 mg p.o. daily. 20. Multivitamins 0.5 p.o. q.48 hours. 21. Cicero-3 1000 milligrams as before. 22. Xarelto 20 mg p.o. daily. 23. glucophage 500 mg p.o. daily. 24. Ultram 50 mg p.o. t.i.d. p.r.n. Once again, the patient will be discharged in stable condition with guarded prognosis. MTDD
== END 2016-07-12 16:37 | disposition home health service (06) | DRG 603 ==
LOC: EC 13:29 → 4MS4W 16:49
PROVIDERS: ADMIT Internal Medicine; ATTEND Internal Medicine
DX: L03.115 Cellulitis of right lower limb (principal); I48.91 Unspecified atrial fibrillation; I10 Essential (primary) hypertension; E11.9 Type 2 diabetes mellitus without complications; E66.9 Obesity, unspecified; E78.5 Hyperlipidemia, unspecified; J45.20 Mild intermittent asthma, uncomplicated; M19.90 Unspecified osteoarthritis, unspecified site; Z68.42 Body mass index [BMI] 45.0-49.9, adult; Z79.01 Long term (current) use of anticoagulants; Z79.82 Long term (current) use of aspirin; Z79.899 Other long term (current) drug therapy; Z88.5 Allergy status to narcotic agent; Z88.2 Allergy status to sulfonamides; Z88.8 Allergy status to other drugs, medicaments and biological substances; Z87.891 Personal history of nicotine dependence; Z96.41 Presence of insulin pump (external) (internal); Z96.651 Presence of right artificial knee joint; Z96.619 Presence of unspecified artificial shoulder joint; Z82.49 Family history of ischemic heart disease and other diseases of the circulatory system
CPT/HCPCS: 36415; 80048; 80053; 80202; 83036; 83605; 85025; 85027; 85610; 85730; 87040; 94640; 96365; 96366; 99284